=== PATIENT | female | born 1980 | race African-American/Black ===

== ENCOUNTER 2023-05-19 08:07 | Emergency (ER) | payer OTHER ==
[2023-05-19 08:44] LABS: #Monocytes 0.5 thou/uL (0.11-0.59); #Neutrophils 7.7 thou/uL (1.40-6.50); %Basophils 0.3 % (0.0-1.0); %Lymphocytes 15.1 % (21.0-51.0); %Monocytes 4.8 % (0.0-10.0); %Neutrophils 79.5 % (42.0-75.0); Hematocrit 42.2 % (36.0-47.0); Hemoglobin 14.9 g/dL (12.0-16.0); Mean Corpuscular HGB CONC 35.3 g/dL (32.0-36.0); Mean Corpuscular Hemoglobin 32.7 pg (27.0-31.0); Mean Corpuscular Volume 92.5 fl (78.0-98.0); Mean Platelet Volume 9.8 fL (7.4-10.4); Platelet Count 258 10x3/uL (130-400); RBC Distribution Width 12.3 % (11.5-14.5); Red Blood Cell (RBC) Count 4.56 mill/uL (4.20-5.40); White Blood Cell (WBC) Count 9.7 10x3/uL (4.8-10.8)
[2023-05-19 08:45] LABS: Manual Diff?? YES
[2023-05-19 08:47] LABS: BHCG - Serum Negative (NEGATIVE); Pregs Control Background? CLEAR/WHITE (CLR/WHITE); Pregs Control Bar Appear? YES (CONTROL BAR)
[2023-05-19] MEDS ORDERED: diphenhydrAMINE 50 MG/ML VIAL ONE (09:01)
[2023-05-19] MEDS ORDERED: Metoclopramide HCl 10 MG/2 ML VIAL ONE (09:01)
[2023-05-19 09:03] LABS: CellaVision Operator ID LAB.CLH1; Lymphocytes 13 % (21-51); Monocytes 4 % (0-10); Neutrophil 82 % (42-75); Platelet Adequacy Comment Platelets Normal; Reactive Lymphocytes 1 % (0-10); Total Cell Count 100
[2023-05-19 09:04] LABS: Troponin I Less than 0.010 ng/mL (< 0.028)
[2023-05-19 09:05] LABS: ALT (SGPT) 12 U/L (8-55); AST (SGOT) 16 U/L (5-34); Albumin 4.1 g/dL (3.5-5.0); Alkaline Phosphatase 87 U/L (40-110); Anion Gap 12 mmol/L (10-20); BUN (Urea Nitrogen) 8 mg/dL (7.0-18.7); Bilirubin, Total 0.6 mg/dL (0.2-1.2); Calc. Creatinine Clearance 0 mL/min (70-130); Calcium 9.2 mg/dL (7.8-10.44); Carbon Dioxide 19 mmol/L (22-29); Chloride 105 mmol/L (98-107); Estimated GFR 84; Globulin 3.4 g/dL (2.4-3.5); Glucose 145 mg/dL (70-105); Magnesium 1.7 mg/dL (1.6-2.6); Potassium 3.9 mmol/L (3.5-5.1); Protein, Total 7.5 g/dL (6.0-8.3); Sodium 132 mmol/L (136-145)
[2023-05-19 09:26] LABS: Acetaminophen Less than 10 mcg/mL (10.0-30.0); Alcohol Less than 10.0 mg/dL (Less than 10); Salicylate Less than 8.0 mg/dL (15.0-30.0)
[2023-05-19 11:39] LABS: Troponin I Less than 0.010 ng/mL (< 0.028)
[2023-05-19 11:47] LABS: Amphetamine Not Detected (NotDetected); Barbiturates Screen Not Detected (NotDetected); Benzodiazepine Screen Not Detected (NotDetected); Cocaine Metabolite Screen Not Detected (NotDetected); Methadone Not Detected (NotDetected); Methamphetamine Not Detected (NotDetected); Opiate Screen Not Detected (NotDetected); Oxycodone Screen Not Detected (NotDetected); Phencyclidine (PCP) Not Detected (NotDetected); THC/Cannabinoid Screen Detected (NotDetected); Tricyclic Screen Not Detected (NotDetected)
== END 2023-05-19 13:13 | disposition home or self-care (01) ==
LOC: ERS 08:07
DX: R07.9 Chest pain, unspecified (principal); R11.2 Nausea with vomiting, unspecified; F17.210 Nicotine dependence, cigarettes, uncomplicated
CPT/HCPCS: 36415; 71045; 80053; 80306; 80307; 83735; 84484; 84703; 85025; 93005; 96361; 96374; 96375; J1200; J2765